=== PATIENT | female | born 1940 | race Caucasian/White ===

== ENCOUNTER 2018-07-05 11:56 | Inpatient (IN) ==
[2018-07-05] MEDS ORDERED: DUONEB (A & A) INH ONE (12:31)
[2018-07-05 13:00] LABS: BASO# 0.03 X1000 (0.0-0.2); BASO% 0.5 % (0.0-0.8); EOS# 0.17 X1000 (0.0-0.7); EOS% 3.1 % (0.0-10.0); HEMATOCRIT 42.3 % (37.0-47.0); HEMOGLOBIN 13.8 g/dL (12.0-16.0); IMM GRAN# 0.01 X1000 (0.0-0.04); IMM GRAN% 0.2 % (0.0-0.5); LYMPH# 1.11 X1000 (1.2-3.4); LYMPH% 19.9 % (20.5-51.1); MCH 30.7 PG (27-31); MCHC 32.6 g/dL (33-37); MONO# 0.64 X1000 (0.11-0.59); MONO% 11.5 % (1.7-9.3); MPV 10.3 FL (7.4-10.4); NEUT# 3.61 X1000 (1.4-6.5); NEUT% 64.8 % (42.2-75.2); PLT 235 X1000 (130-400); RDW 13.6 % (11.5-14.5); WBC 5.57 X1000 (4.8-10.8)
[2018-07-05 13:29] LABS: AGAP 8; ALBUMIN 3.9 g/dL (3.5-5.0); ALKALINE PHOSPHATASE 50 U/L (32-104); BUN 5 mg/dL (8-22); CALCIUM 8.7 mg/dL (8.8-10.2); CHLORIDE 101 mmol/L (98-107); CK PROFILE 55 U/L (24-173); COSMO 281; CREATININE 0.5 mg/dL (0.5-0.9); ESTIMATED GFR > 60; GLUCOSE 103 mg/dL (70-104); GOT 15 U/L (10-30); GPT 8 U/L (10-36); POTASSIUM 3.9 mmol/L (3.5-5.1); SODIUM 142 mmol/L (136-145); TCO2 33 mmol/L (25-35); TOTAL PROTEIN 6.5 g/dL (6.3-8.3)
--- NOTE | 2018-07-05 13:31 | Diag Imaging Result Doc PS360 ---
EXAM: CHEST-2 VIEWS HISTORY: SOB TECHNIQUE: Chest two views COMPARISON: 04/15/2016 FINDINGS: The lungs are hyperexpanded. There is an increased AP diameter to the chest. The pulmonary vessels are small. No cardiomegaly. No infiltrates. No pleural effusions. Mild to moderate scoliosis. IMPRESSION: Severe emphysema Electronically signed by Jeanmarie Olivarez 07/05/2018 1:29 PM
[2018-07-05 14:33] LABS: BE 5.6 mmoll (-3.0-3.0); BLOOD TYPE ARTERIAL; HCO3-(ACT) 29.1 mmoll (20.0-26.0); METHB 1.3 % (0.0-1.5); O2(CT) 17.5 mL/dL (15.0-23.0); O2HB 91.4 % (95.0-99.0); PCO2(98.6) 45 mmHg (35-45); PO2(98.6) 55 mmHg (60-100); SAMPLE BLOOD; SAO2 94.8 % (95.0-100.0); THB 13.6 g/dL (11.5-17.4); pH(98.6) 7.44 (7.35-7.45)
[2018-07-05 14:38] LABS: ALLEN TEST YES; MODALITY ROOM AIR
--- NOTE | 2018-07-05 15:07 | EKG Report ---
Test Performed on : 07/05/2018 12:18:41 PM Test Reason : SOB Blood Pressure : / mmHG Vent. Rate : 074 BPM Atrial Rate : 074 BPM P-R Int : 140 ms QRS Dur : 078 ms QT Int : 372 ms P-R-T Axes : 079 -30 060 degrees QTc Int : 412 ms Normal sinus rhythm. Left axis deviation Septal infarct (cited on or before 26-JUN-2013) Abnormal ECG When compared with ECG of 10-JAN-2016 15:51, Serial changes of Septal infarct present Unconfirmed Result
--- NOTE | 2018-07-05 15:25 | PROVIDER DOCUMENTATION ---
This chart was entered by Twila Chapman Scribe, acting as scribe for Tommy Rios MD. HPI-Respiratory General - General Chief Complaint: Shortness of Breath Stated Complaint: SOB Time Seen by Provider: 07/05/18 12:26 Source: patient Allergies/Adverse Reactions: Patient Allergies Allergy/AdvReac Type Severity Reaction Status Date / Time Penicillins Allergy Severe SWELLING Verified 07/05/18 12:27 Sulfa (Sulfonamide Allergy Severe SWELLING Verified 07/05/18 12:27 Antibiotics) levofloxacin [From Levaquin] Allergy redness at Verified 07/05/18 12:27 iv site and up arm codeine [Codeine] AdvReac Severe ITCHING Verified 07/05/18 12:27 Home Medications: Home Medication List Medication Instructions Recorded Confirmed Last Taken Type Clopidogrel [Plavix] 75 mg PO DAILY 08/20/12 04/15/16 04/06/16 08:00 History Losartan Potassium 100 mg PO DAILY 10/01/12 04/15/16 04/13/16 08:00 History Trazodone [Desyrel] 100 mg PO QHS 10/01/12 04/15/16 04/13/16 21:00 History Alprazolam [Xanax] 0.5 mg PO HS 05/14/13 04/15/16 04/13/16 21:00 History Albuterol 2.5MG/Ipratrop 0.5MG 3 ml INH Q6H #0 08/28/13 04/15/16 04/14/16 18:00 Rx [Duoneb (A & A)] Albuterol Sulfate [Proair Hfa] 2 puff IH PRN PRN 08/05/14 04/15/16 04/15/16 04:00 History Ipratropium/Albuterol INH 1 - 2 puff INH 4XDAY 03/13/15 04/15/16 04/15/16 03:30 History [Combivent Respimat Inhaler] Diphenoxylate/Atropine [Lomotil] 1 each PO 4XDAY PRN PRN #30 tablet 04/20/16 Unknown Rx - History of Present Illness-Resp Nature of Presenting Problem: 78 yowf presents to the ed with c/o sob since yesterday. pt sts has copd and has a flare up often. pt sts onset last night but this am became worse and so pt came to ed for tx Quality of Pain: reports: fullness Severity in ED: reports: mild Onset/Duration: reports: 24 hours ago Timing: reports: still present, getting worse Context: reports: other (copd) Cough Quality/Degree: reports: productive cough Episode Frequency: chronic episodes Current Respiratory Medication Therapy: Initiated see nurses note Modifying Factors: improves with: nothing. worse with: exertion, lying down Associated Symptoms: reports: cough, shortness of breath, wheezing. denies: fever/chills, headache Similar Symptoms Previously?: Yes (copd) Recently seen or treated by another doctor?: No Review of Systems - Adult - REVIEW OF SYSTEMS - ADULT Constitutional: denies: chills, fever Eyes: reports: no symptoms reported Ears, Nose, Mouth & Throat: reports: no symptoms reported Cardiovascular: denies: chest pain, palpitations Respiratory: reports: see HPI, chronic cough, dyspnea on exertion, shortness of breath, wheezing Gastrointestinal: denies: abdominal pain, diarrhea, nausea, vomiting Genitourinary: reports: no symptoms reported Musculoskeletal: denies: back pain, neck pain Integumentary: reports: no symptoms reported Neurological: denies: dizziness/vertigo, headache/migraines Psychiatric: reports: no symptoms reported Endocrine: reports: no symptoms reported Hematologic/Lymphatic: reports: no symptoms reported Allergic/Immunologic: reports: no symptoms reported All Other Systems: Reviewed and Negative Past History - Adult - PAST MEDICAL HISTORY-ADULT Review of Records: reports: Nursing Assessment Review, Medications Reviewed Major Childhood Illnesses: reports: denies history Cardiovascular: reports: HTN Respiratory: reports: COPD, pneumonia Gastrointestinal: reports: cancer (Colon) Obstetrical/Gynecological: reports: denies history Genitourinary: reports: denies history Musculoskeletal: reports: denies history Hand Dominance: Right Handed Neurological: reports: CVA, TIA Endocrine/Immune: reports: denies history Other Conditions: reports: denies history - PRIOR SURGERIES/PROCEDURES Surgical/Procedure History: reports: appendectomy, colonoscopy (yesterday), hysterectomy, bowel surgery (colon resection x 3) - IMMUNIZATION STATUS Childhood Immunizations: See Nurse Assessment Flu Vaccine: See Nurse Assessment - FAMILY HISTORY Family History: reviewed, not pertinent - SOCIAL HISTORY Smoking: quit greater than 1 year Substance Use: denies Alcohol Use Frequency: never Living Situation: family Physical Exam-General - PHYSICAL EXAM-ADULT Initial Vital Signs Reviewed: Yes - CONSTITUTIONAL General Appearance: alert, mild distress - EYES Eyes: PERRL/EOMI, pink conjunctivae - HEAD, EARS, NOSE, MOUTH & THROAT HENMT: normocephalic/atraumatic, moist mucous membranes, dental decay - NECK Neck: non-tender, full range of motion, supple, normal inspection - RESPIRATORY Respiratory: chest non-tender, respiratory distress (mild), wheezing, increased rate (26) - CARDIOVASCULAR Cardiovascular: normal peripheral pulses, regular rate, rhythm - GASTROINTESTINAL (ABDOMEN) Abdominal Exam: normal bowel sounds, non tender, soft - LYMPHATIC Lymphatic: no adenopathy - MUSCULOSKELETAL Back Exam: normal inspection, no CVA tenderness, no vertebral tenderness Extremity: normal range of motion, non-tender, normal gait, normal inspection, no pedal edema, no calf tenderness, normal capillary refill, pelvis stable - SKIN Integumentary: normal color, normal turgor, warm/dry - NEUROLOGIC Neurologic: grossly normal, no motor/sensory deficits - PSYCHIATRIC Psych/Mental Status: normal mood/affect, normal thought content, normal thought process, oriented x 3 Progress - PLAN OF CARE/RESULTS Progress/Plan/Lab Results: Vital Signs - 8 hr 07/05/18 11:57 07/05/18 13:00 Temperature 97.9 F Pulse Rate 90 70 Respiratory Rate 24 20 Blood Pressure 178/083 O2 Sat by Pulse Oximetry 90 L 94 L Laboratory Results - last 24 hr 07/05/18 07/05/18 07/05/18 12:23 12:23 12:23 WBC 5.57 RBC 4.50 Hgb 13.8 Hct 42.3 MCV 94.0 MCH 30.7 MCHC 32.6 L RDW Std Deviation 13.6 Plt Count 235 MPV 10.3 Immature Gran % (Auto) 0.2 Neut % (Auto) 64.8 Lymph % (Auto) 19.9 L [place] % (Auto) 11.5 H Eos % (Auto) 3.1 Baso % (Auto) 0.5 Immature Gran # (Auto) 0.01 Neut # (Auto) 3.61 Lymph # (Auto) 1.11 L [place] # (Auto) 0.64 H Eos # (Auto) 0.17 Baso # (Auto) 0.03 PT INR PTT (Actin FS) Specimen Type Sample Site pH pCO2 pO2 HCO3 Base Excess Oxyhemoglobin ABG O2 Sat (Calculated) ABG O2 Saturation ABG Carboxyhemoglobin ABG Methemoglobin Hany Test A-a O2 Difference Total Hemoglobin Lactate Blood Gas Modality FiO2 % Sodium 142 Potassium 3.9 Chloride 101 Carbon Dioxide 33 Anion Gap 8 BUN 5 L Creatinine 0.5 Estimated GFR/1.73 m2 > 60 BUN/Creatinine Ratio 10 Glucose 103 Calculated Osmolality 281 Calcium 8.7 L Total Bilirubin 0.50 AST 15 ALT 8 L Alkaline Phosphatase 50 Creatine Kinase 55 Troponin T Tqw-N-Onjgpsxczin Pept 244 Total Protein 6.5 Albumin 3.9 Globulin 3.0 Albumin/Globulin Ratio 2.0 Plasma Lactate 07/05/18 07/05/18 07/05/18 12:23 12:23 13:02 WBC RBC Hgb Hct MCV MCH MCHC RDW Std Deviation Plt Count MPV Immature Gran % (Auto) Neut % (Auto) Lymph % (Auto) [place] % (Auto) Eos % (Auto) Baso % (Auto) Immature Gran # (Auto) Neut # (Auto) Lymph # (Auto) [place] # (Auto) Eos # (Auto) Baso # (Auto) PT 13.0 INR 0.94 PTT (Actin FS) 29.1 Specimen Type Sample Site pH pCO2 pO2 HCO3 Base Excess Oxyhemoglobin ABG O2 Sat (Calculated) ABG O2 Saturation ABG Carboxyhemoglobin ABG Methemoglobin Hany Test A-a O2 Difference Total Hemoglobin Lactate Blood Gas Modality FiO2 % Sodium Potassium Chloride Carbon Dioxide Anion Gap BUN Creatinine Estimated GFR/1.73 m2 BUN/Creatinine Ratio Glucose Calculated Osmolality Calcium Total Bilirubin AST ALT Alkaline Phosphatase Creatine Kinase Troponin T < 0.010 Koj-Q-Gnxwvzwnqcm Pept Total Protein Albumin Globulin Albumin/Globulin Ratio Plasma Lactate 2.1 07/05/18 14:18 WBC RBC Hgb Hct MCV MCH MCHC RDW Std Deviation Plt Count MPV Immature Gran % (Auto) Neut % (Auto) Lymph % (Auto) [place] % (Auto) Eos % (Auto) Baso % (Auto) Immature Gran # (Auto) Neut # (Auto) Lymph # (Auto) [place] # (Auto) Eos # (Auto) Baso # (Auto) PT INR PTT (Actin FS) Specimen Type ARTERIAL Sample Site R RADIAL pH 7.44 pCO2 45 pO2 55 L HCO3 29.1 H Base Excess 5.6 H Oxyhemoglobin 91.4 L ABG O2 Sat (Calculated) 17.5 ABG O2 Saturation 94.8 L ABG Carboxyhemoglobin 2.30 ABG Methemoglobin 1.3 Hany Test YES A-a O2 Difference 38.0 Total Hemoglobin 13.6 Lactate 0.90 Blood Gas Modality ROOM AIR FiO2 % 21.0 Sodium Potassium Chloride Carbon Dioxide Anion Gap BUN Creatinine Estimated GFR/1.73 m2 BUN/Creatinine Ratio Glucose Calculated Osmolality Calcium Total Bilirubin AST ALT Alkaline Phosphatase Creatine Kinase Troponin T Hei-Y-Kgvqbdktado Pept Total Protein Albumin Globulin Albumin/Globulin Ratio Plasma Lactate Orders Category Date Time Status Cardiac Monitoring DIRECTED Care 07/05/18 12:28 Active Oxygen Therapy- ED Nursing DIRECTED Care 07/05/18 12:28 Active Saline Loc NOW Care 07/05/18 12:28 Active CHEST-2 VIEWS [RAD] Stat Exams 07/05/18 12:28 Completed ABG [RESP] Routine Lab 07/05/18 14:18 Completed BLOOD CULTURE [BLDCUL] Stat Lab 07/05/18 12:58 Ordered CBC WITH ELECTRONIC DIFF [HEME] Stat Lab 07/05/18 12:23 Completed CK PROFILE [SP CHEM] Stat Lab 07/05/18 12:23 Completed COMPREHENSIVE METABOLIC PANEL [CHEM] Stat Lab 07/05/18 12:23 Completed LACTATE, PLASMA [CHEM] Stat Lab 07/05/18 13:02 Completed PRO B-NATRIURETIC PEPTIDE Stat Lab 07/05/18 12:23 Completed PROTIME WITH INR [COAG] Stat Lab 07/05/18 12:23 Completed PTT [COAG] Stat Lab 07/05/18 12:23 Completed TROPONIN T Stat Lab 07/05/18 12:23 Completed Albuterol 2.5MG/Ipratrop 0.5MG [Duoneb (A & A)] Med 07/05/18 12:31 Discontinued 3 ml INH NOW ONE Aerosol Treatments Routine Oth 07/05/18 12:31 Active Aerosol Treatments Stat Oth 07/05/18 12:31 Active CP/SOB/Palp >45 yrs of Age Stat Oth 07/05/18 12:28 Ordered EKG [EKG] Stat Ther 07/05/18 12:28 Draft Result Diagrams: 07/05/18 12:23 07/05/18 12:23 - REASSESSMENT Reassessment #1 Time Reassessed: 12:41 Status: unchanged Reassessment #2 Time Reassessed: 15:35 Status: unchanged - EKG 1 Time of EKG reading by physician:: 12:18 EKG Read and Signed by:: Tommy Rios EKG Interpretation (*Must complete 3 of following elements*): Abnormal Rate: 74 Rhythm: nsr Pana: left (deviation) QRS: normal MT Interval: normal ST Wave: normal Comments: septal infarct, age undetermined - XRAY 1 XRAY: Bilateral XRAY Study: Chest Impression: See EMR Report (EXAM: CHEST-2 VIEWS HISTORY: SOB TECHNIQUE: Chest two views COMPARISON: 04/15/2016 FINDINGS: The lungs are hyperexpanded. There is an increased AP diameter to the chest. The pulmonary vessels are small. No cardiomegaly. No infiltrates. No pleural effusions. Mild to moderate scoliosis. IMPRESSION: Severe emphysema Electronically signed by Jeanmarie Olivarez 07/05/2018 1:29 PM 07/05/18 1329 Interpreting Physician: Jeanmarie Olivarez MD Dictated Date/Time: 07/05/18 1328 cc: Tommy Rios MD; Marcos Ramos MD) - CONSULTS/PCP/HOSPITALIST Notification #1 *Consult/PCP/Hospitalist*: hospitalist dr quispe Time Discussed: 15:50 Consult Disposition: Admit Departure - Departure Date of Disposition Decision: 07/05/18 Time of Disposition Decision: 16:08 DIAGNOSIS: COPD with exacerbation Disposition: ADMITTED INPATIENT 09 Certified Medical Emergency: Emergent Condition: Stable Referrals and Follow-Ups: Marcos Ramos MD [Primary Care Provider] - - Critical Care Note This patient required my direct & personal management of CC.: No Total Time (mins): 0 Critical Care Statement: This patient required my direct personal management to treat or rule out processes, the absence of which, could potentiallly result in sudden, clinically significant life or limb threatening deterioration. Attestation - Physician/ EMILY Attestation Patient care was provided by Advanced Practice Provider:: No The physician spent face to face time with patient:: Yes Advanced Practice Provider documentation review:: Supervising physician onsite and consulted in the evaluation and care of this patient. The physician did have a face to face encounter with the patient. This chart was documented by the indicated scribe, (Twila Chapman Scribe) and accurately reflects the services I performed and decisions made by me, Tommy Rios MD, as attested by the provider's signature.
[2018-07-05 16:04] LABS: INR 0.94; PTT 29.1 Seconds (22.3-41.8)
[2018-07-05] MEDS ORDERED: SOLU-MEDROL IV ONE (16:11)
[2018-07-05] MEDS ORDERED: ROCEPHIN 1 GM in NS 50 ML IV ONE (16:11)
[2018-07-05] MEDS ORDERED: TYLENOL PO PRN ×2 (16:22→19:37)
[2018-07-05] MEDS ORDERED: NS 1,000 ML IV ONE (16:22)
[2018-07-05] MEDS ORDERED: SALINE LOCK IV FLUID XX ONE (19:35)
[2018-07-05] MEDS ORDERED: DUONEB (A & A) INH PRN (19:37)
[2018-07-05] MEDS ORDERED: ZOFRAN IV PRN (19:37)
[2018-07-05] MEDS: DUONEB (A & A) INH SCH ×2 (19:42→23:31)
[2018-07-05 20:06] LABS: BILIRUBIN URINE NEGATIVE (NEGATIVE); BLOOD URINE NEGATIVE (NEGATIVE); CLARITY CLEAR (CLEAR); COLOR YELLOW; GLUCOSE URINE NEGATIVE (NEGATIVE); KETONE URINE NEGATIVE (NEGATIVE); LEUKOCYTES URINE 1+ (NEGATIVE); NITRITE URINE NEGATIVE (NEGATIVE); PROTEIN URINE NEGATIVE (NEGATIVE); URINE SOURCE CLEAN CATCH; UROBILINOGEN URINE NORMAL
[2018-07-05 20:08] LABS: URINE BACTERIA NEGATIVE /HFP; URINE CAST NONE SEEN /LPF; URINE CRYSTAL NONE SEEN /HPF; URINE EPITHELIAL CELLS >10 /HPF (<10); URINE RBC <10 /HPF (<10); URINE SMALL ROUND CELLS TRANSITIONAL PRESENT; URINE WBC <10 /HPF (<10); URINE YEAST NONE SEEN /HPF
[2018-07-05] MEDS: SOLU-MEDROL IV SCH ×2 (21:15→21:16)
[2018-07-05] MEDS: NS 1,000 ML IV SCH (21:20)
[2018-07-05] MEDS: DOXYCYCLINE 100 MG in NS 250 ML IV SCH (21:35)
--- NOTE | 2018-07-05 23:06 | HISTORY AND PHYSICAL ---
CHIEF COMPLAINT: Shortness of breath. HISTORY OF PRESENT ILLNESS: The patient is an 78-year-old female who has a known history of chronic hypoxic respiratory failure, is on oxygen at home, has a known history of COPD. She states that she has had increased cough, congestion and increased work of breathing for the past couple of days, has continued to worsen. It is now affecting her activities of daily living. She denies any fevers or chills. She notes her symptoms have continued to worsen therefore she came to the ER. ALLERGIES: Penicillin causing swelling, sulfa causing swelling, levofloxacin causing redness, and codeine causing itching. MEDICATIONS: Plavix 75, losartan 100, trazodone 100 at bedtime, Xanax 0.5 at bedtime, albuterol q.4 p.r.n. REVIEW OF SYSTEMS: As noted above. Positive cough, congestion, shortness of breath, dyspnea on exertion, wheezing. Is on oxygen at home. Denies any fevers or chills. Denies any dysuria, frequency, urgency, hesitancy. Denies polyuria or polydipsia. Denies skin rashes, weight loss or weight gain. Denies any production to her cough. Denies any headaches, blurred vision, change in vision, focalized numbness, tingling, weakness. PAST MEDICAL HISTORY: COPD, hypertension, recurrent pneumonia, history of colon cancer, history of CVA, recurrent TIA. PAST SURGICAL HISTORY: The patient has had an appendectomy, colonoscopy, hysterectomy, and bowel surgery with colon resection. FAMILY HISTORY: Noncontributory. SOCIAL HISTORY: The patient stopped smoking greater than a year ago. Denies any alcohol or other illicit substance use. PHYSICAL EXAMINATION: VITAL SIGNS: Temperature 97.9, pulse 90, respiratory rate 24, BP 178/83, oxygen saturation 90% on room air. GENERAL: The patient is awake, alert. She is in mild respiratory distress. Very pleasant to talk with, sitting in the chair. She is alert and oriented x3. HEENT: Normocephalic. NECK: Supple. CARDIOVASCULAR: Regular rate. CHEST: Clear, nonlabored. ABDOMEN: Soft nondistended, and nontender. EXTREMITIES: Moves all extremities. NEUROLOGIC: No changes. ASSESSMENT: 1. Chronic obstructive pulmonary disease exacerbation. 2. Hypertension. 3. Hypoxic respiratory failure. PLAN: We will admit the patient the hospital. IV fluids, antibiotics, breathing treatments, steroids. We will continue her home medications. Further orders as needed. cc: Arie Sanabria MD
[2018-07-06] MEDS: DUONEB (A & A) INH SCH ×13 (04:23→23:19)
[2018-07-06] MEDS: SOLU-MEDROL IV SCH ×3 (04:53→20:46)
[2018-07-06] MEDS ORDERED: LOMOTIL PO PRN (06:45)
[2018-07-06] MEDS ORDERED: KLONOPIN PO PRN (06:45)
[2018-07-06 07:12] LABS: BASO# 0.01 X1000 (0.0-0.2); BASO% 0.2 % (0.0-0.8); HEMATOCRIT 40.3 % (37.0-47.0); HEMOGLOBIN 12.9 g/dL (12.0-16.0); IMM GRAN# 0.01 X1000 (0.0-0.04); IMM GRAN% 0.2 % (0.0-0.5); LYMPH# 0.63 X1000 (1.2-3.4); LYMPH% 10.1 % (20.5-51.1); MCH 30.3 PG (27-31); MCV 94.6 FL (81-99); MONO# 0.06 X1000 (0.11-0.59); MPV 10.7 FL (7.4-10.4); NEUT# 5.53 X1000 (1.4-6.5); NEUT% 88.5 % (42.2-75.2); PLT 239 X1000 (130-400); RBC 4.26 XMIL (4.2-5.4); RDW 13.3 % (11.5-14.5); WBC 6.24 X1000 (4.8-10.8)
[2018-07-06 07:39] LABS: AGAP 14; ALBUMIN 3.5 g/dL (3.5-5.0); ALKALINE PHOSPHATASE 45 U/L (32-104); BUN 5 mg/dL (8-22); CALCIUM 8.7 mg/dL (8.8-10.2); CHLORIDE 101 mmol/L (98-107); COSMO 281; CREATININE 0.5 mg/dL (0.5-0.9); ESTIMATED GFR > 60; GLUCOSE 168 mg/dL (70-104); GOT 14 U/L (10-30); GPT 8 U/L (10-36); POTASSIUM 3.8 mmol/L (3.5-5.1); SODIUM 140 mmol/L (136-145); TCO2 26 mmol/L (25-35); TOTAL PROTEIN 6.7 g/dL (6.3-8.3)
[2018-07-06] MEDS: DOXYCYCLINE 100 MG in NS 250 ML IV SCH ×2 (08:37→20:45)
[2018-07-06 08:46] LABS: ANISOCYTOSIS 1+; BANDS 1 % (0-1); LYMPHS 11 % (21-51); MONO 3 % (1-9); SEGS 85 % (42-75)
[2018-07-06] MEDS ORDERED: LIPITOR PO SCH (09:00)
[2018-07-06] MEDS: NS 1,000 ML IV SCH (15:44)
[2018-07-06] MEDS ORDERED: DESYREL PO SCH (21:00)
--- NOTE | 2018-07-07 01:28 | PROGRESS NOTE ---
DATE: 07/06/2018 SUBJECTIVE: Patient notes that she is starting to breathe a little bit easier. Cough has improved. Denies any fevers or chills. Notes that she is able to get out of bed easier. PHYSICAL EXAMINATION: Vital Signs: Temperature 97.6 degrees, pulse 92, respiratory rate 18, BP 119/67. General: Patient is an elderly female who has currently no focal changes. She is in mild respiratory distress. Very pleasant to talk with. HEENT: Normocephalic. Neck: Supple. Cardiovascular: Regular rate. Chest: Decreased but equal breath sounds bilaterally. Abdomen: Soft, nondistended. Extremities: Moves all extremities. ASSESSMENT: 1. Chronic obstructive pulmonary disease with exacerbation. 2. Hypertension. 3. Acute on chronic hypoxic respiratory failure. PLAN: We will continue Solu-Medrol decrease to 40 IV q.8. Continue doxycycline, Rocephin, continue breathing treatments, oxygen. Hopefully home over the next 1 or 2 days. cc: Arie Sanabria MD
[2018-07-07] MEDS: DUONEB (A & A) INH SCH ×3 (03:11→08:04)
[2018-07-07 06:04] VITALS: BP 128/78
[2018-07-07] MEDS: SOLU-MEDROL IV SCH (06:07)
[2018-07-07] MEDS: NS 1,000 ML IV SCH (08:52)
[2018-07-07] MEDS ORDERED: DOXYCYCLINE PO SCH (09:00)
[2018-07-07] MEDS ORDERED: LIPITOR PO SCH (21:00)
--- NOTE | 2018-07-08 06:24 | PROGRESS NOTE ---
DATE: 07/07/2018 Patient seen and examined by myself. Full note dictated and discussed with nurse practitioner. On discharge, patient is awake, alert. She is much improved. She is in minimal respiratory distress. The patient will discharge home. She will continue antibiotics, steroids at home. We will follow. Please see full note. cc: Arie Sanabria MD
--- NOTE | 2018-07-08 08:59 | DISCHARGE SUMMARY ---
ADMISSION DATE: 07/05/2018 DISCHARGE DATE: 07/07/2018 ADMISSION DIAGNOSES: 1. Chronic obstructive pulmonary disease exacerbation. 2. Hypoxic respiratory failure. 3. Hypertension. 4. History of colon cancer. 5. History of cerebrovascular accident. DISCHARGE DIAGNOSES: 1. Chronic obstructive pulmonary disease exacerbation. 2. Hypoxic respiratory failure. 3. Hypertension. 4. History of colon cancer. 5. History of cerebrovascular accident. DIAGNOSTIC PROCEDURES AND FINDINGS: Chest x-ray 07/05/2018, severe emphysema. EKG 07/05/2018, sinus rhythm, left axis deviation. CONSULTATIONS: None. HOSPITAL COURSE: Ms. Dennis is an 78-year-old female with a history of chronic hypoxic respiratory failure on home O2 and COPD who presented with increased cough, congestion, increased work of breathing for the past 2-3 days. She denied any fevers or chills but symptoms were concerning enough for her to come to the ER. In the ER, she had a chest x-ray done which did not show anything acute, severe COPD changes were noted. Her laboratory data did show mild hypoxic respiratory failure on ABG. She was admitted for COPD exacerbation with steroids, antibiotics, breathing treatments, aggressive pulmonary toilet. This improved her symptoms significantly. She is breathing much better now. She has been able to ambulate and not have nearly as much shortness of breath as she did. This morning, she is feeling much better. Her vitals are stable and she is stable for discharge home. DISCHARGE MEDICATIONS: 1. Trazodone 100 mg p.o. at bedtime. 2. Combivent Respimat 4 gram inhaler 1-2 puffs inhaled 4 times a day. 3. Lomotil one each 4 times a day as needed. 4. Lipitor 20 mg p.o. daily. 5. Klonopin 0.5 mg b.i.d. as needed. 6. Mometasone steroid cream topically daily as directed. 7. Omnicef 300 mg p.o. b.i.d. 8. Doxycycline 100 mg p.o. b.i.d. Both of these are for 5 more days. 9. DuoNeb every 2 hours as needed. 10.Medrol Dosepak as directed and 1 prescription for a nebulizer. DISCHARGE ACTIVITY: Resume activity as tolerated. DISCHARGE DIET: Heart healthy. DISPOSITION AND OTHER DISCHARGE INSTRUCTIONS: The patient is discharged home to self care. She is to continue all medications as directed and follow up with Dr. Marcos Ramos in 1-2 weeks or sooner if needed. She is to return to the ER or call 911 for worsening complaints or concerns. All questions answered. Discharge time greater than 35 minutes. Dictated by DAYANA Diaz for Arie Sanabria MD cc: DAYANA Diaz MD Edwin K. Matthews, MD
== END 2018-07-07 09:25 | disposition home or self-care (01) | DRG 191 ==
LOC: P.ED 11:56 → P.MEDSURG 11:56 → OBSVTOIN 16:25
PROVIDERS: ADMIT Family Medicine; ATTEND Family Medicine
CPT/HCPCS: 71020; 71046; 80053; 81001; 82550; 82805; 83605; 83880; 84484; 85025; 85610; 85730; 87040; 87088; 93005; 94640; 94761; 94799; 99285; A9270; J2920; J2930; J7030; J7050